=== PATIENT | female | born 1990 | race African-American/Black ===

== ENCOUNTER 2018-11-29 10:41 | Emergency (ER) | payer MEDICAID, OTHER ==
[~2018-11-29] VITALS: Ht 160 cm; Wt 74.4 kg
[2018-11-29 10:54] VITALS: BP 131/74
--- NOTE | 2018-11-29 10:56 | NUR ---
PT AMBULATED TO BED 01
--- NOTE | 2018-11-29 11:03 | NUR ---
28F BIB SISTER W/ C/O BACK PAIN WITH URINATION SINCE LAST NIGHT. DENIES DYSURIA. STATES BURNING B/L BACK/CVA PAIN AT REST THAT INCREASES WITH URINATION. STATES FELT WARM, COLD SWEATS, CHILLS YESTERDAY- DID NOT CHECK TEMP AT HOME. FELT NAUSEOUS YESTERDAY WITH DECREASED APPETITE. NO NAUSEA TODAY. NO VOMITING. DID NOT TX AT HOME HX- NONE
--- NOTE | 2018-11-29 11:04 | NUR ---
DR. CRABTREE AT BEDSIDE
[2018-11-29] MEDS ORDERED: KETOROLAC 30 MG/ML VIAL IVP ONE (11:40)
[2018-11-29] MEDS ORDERED: NACL 0.9% 1,000 ML IV ONE (11:40)
--- NOTE | 2018-11-29 12:10 | NUR ---
BLOOD DRAWN BY MYSELF AND TUBES HANDED TO HOSPITAL SCIENTIST RAISSA.
[2018-11-29 12:19] LABS: BASOPHILS # (AUTO) 0.1 K/uL (0.00-0.22); BASOPHILS % (AUTO) 0.5 % (0.0-2.0); EOSINOPHILS # (AUTO) 0.2 K/uL (0-0.4); EOSINOPHILS % (AUTO) 1.8 % (0.0-4.0); HEMATOCRIT 41.7 % (36-48); HEMOGLOBIN 14.2 g/dL (12.0-16.0); LYMPHOCYTES # (AUTO) 1.6 K/uL (2.5-16.5); LYMPHOCYTES % (AUTO) 13.6 % (20.5-51.1); MEAN CORPUSCULAR HEMOGLOBIN 32 pg (27-31); MEAN CORPUSCULAR HGB CONC 34 g/dL (33-37); MEAN CORPUSCULAR VOLUME 93.4 fL (80-94); MONOCYTES # (AUTO) 0.9 K/uL (0.8-1.0); MONOCYTES % (AUTO) 8.1 % (1.7-9.3); NEUTROPHILS # (AUTO) 8.6 K/uL (1.8-7.7); PLATELET COUNT (AUTO) 262 K/uL (140-450); RED BLOOD CELL COUNT(AUTO) 4.47 MIL/uL (4.20-5.40); RED CELL DISTRIBUTION WIDTH 13.7 % (11.6-13.7); WHITE BLOOD COUNT (AUTO) 11.4 K/uL (4.8-10.8)
[2018-11-29] MEDS ORDERED: cefTRIAXone 1,000 MG VIAL ONE (12:19)
[2018-11-29 12:36] LABS: ANION GAP 13.5 (8-16); CARBON DIOXIDE 25.7 mmol/L (21-32); CREATININE 1.1 mg/dL (0.6-1.3); POTASSIUM 4.2 mmol/L (3.5-5.1)
[2018-11-29 12:41] LABS: ALBUMIN 3.6 g/dL (3.4-5.0)
[2018-11-29 12:46] LABS: APPEARANCE,URINE HAZY (CLEAR); BILIRUBIN,URINE NEGATIVE (NEGATIVE); BLOOD, URINE 3+ (NEGATIVE); COLOR,URINE YELLOW (YELLOW); LEUKOCYTE ESTERASE ,URINE 3+ (NEGATIVE); NITRITE, URINE POSITIVE (NEGATIVE); PH,URINE 6.5 (5.0-9.0); UGLUCOSE NEGATIVE (NEGATIVE)
--- NOTE | 2018-11-29 13:24 | NUR ---
DR. ADORNO SPEAKING WITH PATIENT AT BEDSIDE.
[2018-11-29 13:36] LABS: RBC,URINE 11-20 (MOD) /HPF (0-5); WBC,URINE 20-60 /HPF (0-5)
[2018-11-29 13:42] VITALS: BP 118/64
== END 2018-11-29 13:42 | disposition home or self-care (01) ==
LOC: MED 10:41
DX: N12 Tubulo-interstitial nephritis, not specified as acute or chronic (principal); R50.9 Fever, unspecified; Z87.448 Personal history of other diseases of urinary system
CPT/HCPCS: 36415; 80053; 81001; 81025; 84703; 85025; 87086; 96365; 96375; 99283; J0696; J1885; J7030; J7060; 87186

== ENCOUNTER 2020-01-09 05:25 | Emergency (ER) | payer OTHER ==
[~2020-01-09] VITALS: Ht 154.9 cm; Wt 87.1 kg
[2020-01-09 05:35] VITALS: BP 153/101
--- NOTE | 2020-01-09 05:38 | NUR ---
To ED bed 12
--- NOTE | 2020-01-09 05:40 | NUR ---
29 YO F BIB SELF FOR C/C OF 6/10 R UPPER/MID BACK PAIN X3 WEEKS THAT BEGAN WORSENING AT 0400. PT HAS BEEN PRESCRIBED BACLOFEN FOR THIS WITHOUT RELIEF OF SYMTOMS. PT STATES SHE IS ALSO FEELING ANXIOUS, REPORT DOING 0.5 GRAMS OF COCAINE AND ALCOHOL YESTERDAY. PT PRESENTS WITH VSS. BED LOCKED AND IN LOWEST POSITION. SIDE RAILS X1. MED HX: DENIES RX: BACLOFEN ALLERGIES: NSAIDS
--- NOTE | 2020-01-09 06:01 | NUR ---
SHELTON GARCIA AT BEDSIDE
[2020-01-09] MEDS: LORazepam 1 MG TAB PO ONE (06:14)
[2020-01-09 06:40] VITALS: BP 153/101
--- NOTE | 2020-01-09 06:40 | NUR ---
PATIENT ELOPED FROM FACILITY. DISCHARGE INSTRUCTIONS NOT GIVEN TO PATIENT. DR. Pena NOTIFIED.
== END 2020-01-09 06:40 | disposition left against medical advice (07) ==
LOC: MED 05:25
DX: F41.9 Anxiety disorder, unspecified (principal); Z88.6 Allergy status to analgesic agent
CPT/HCPCS: 99283

== ENCOUNTER 2020-01-09 07:15 | Emergency (ER) | payer OTHER ==
[~2020-01-09] VITALS: Ht 160 cm; Wt 79.8 kg
[2020-01-09 07:25] VITALS: BP 145/78
--- NOTE | 2020-01-09 07:39 | NUR ---
PATIENT PRESENTS TO ED WITH CHEST TIGHTNESS AND ANXIETY S/P DOING A GRAM OF COKE AND ALCOHOL ON TUESDAY.. . PT STATES SHE WOKE UP FEELING VERY ANXIOUS AND IS ALSO COMPLAINING OF UPPER BACK PAIN . DENIES N/V/D; SKIN IS PINK/WARM/DRY; AAOX4 WITH EVEN AND STEADY GAIT; LUNGS CLEAR BL; HR EVEN AND REGULAR; PT DENIES ANY FEVER, CP, SOB, OR COUGH AT THIS TIME; PATIENT STATES PAIN OF 5/10 AT THIS TIME; VSS; PATIENT POSITIONED FOR COMFORT; HOB ELEVATED; BEDRAILS UP X2; BED DOWN. EDY PAREKH MADE AWARE OF PT STATUS. Addendum: 01/09/20 at 0743 by [email or web address] PATIENT PRESENTS TO ED WITH CHEST TIGHTNESS AND ANXIETY S/P DOING A GRAM OF COKE AND ALCOHOL ON TUESDAY.. . PT STATES SHE WOKE UP FEELING VERY ANXIOUS AND IS ALSO COMPLAINING OF UPPER BACK PAIN . DENIES N/V/D; SKIN IS PINK/WARM/DRY; AAOX4 WITH EVEN AND STEADY GAIT; LUNGS CLEAR BL; HR EVEN AND REGULAR; PT DENIES ANY FEVER, SOB, OR COUGH AT THIS TIME; PATIENT STATES PAIN OF 5/10 AT THIS TIME; VSS; PATIENT POSITIONED FOR COMFORT; HOB ELEVATED; BEDRAILS UP X2; BED DOWN. EDY PAREKH MADE AWARE OF PT STATUS.
[2020-01-09] MEDS ORDERED: LORazepam 2 MG/ML VIAL IM ONE (08:30)
--- NOTE | 2020-01-09 09:05 | NUR ---
X-Ray at bedside.
[2020-01-09 09:06] LABS: BASOPHILS # (AUTO) 0.1 K/uL (0.00-0.22); BASOPHILS % (AUTO) 0.5 % (0.0-2.0); EOSINOPHILS # (AUTO) 0.1 K/uL (0-0.4); EOSINOPHILS % (AUTO) 0.4 % (0.0-4.0); HEMATOCRIT 41.7 % (36-48); HEMOGLOBIN 14.1 g/dL (12.0-16.0); LYMPHOCYTES # (AUTO) 1.9 K/uL (2.5-16.5); LYMPHOCYTES % (AUTO) 15.3 % (20.5-51.1); MEAN CORPUSCULAR HEMOGLOBIN 32 pg (27-31); MEAN CORPUSCULAR HGB CONC 34 g/dL (33-37); MEAN CORPUSCULAR VOLUME 93.9 fL (80-94); MONOCYTES # (AUTO) 0.6 K/uL (0.8-1.0); MONOCYTES % (AUTO) 4.9 % (1.7-9.3); NEUTROPHILS % (AUTO) 78.9 % (42.2-75.2); PLATELET COUNT (AUTO) 318 K/uL (140-450); RED BLOOD CELL COUNT(AUTO) 4.44 MIL/uL (4.20-5.40); RED CELL DISTRIBUTION WIDTH 13.9 % (11.6-13.7); WHITE BLOOD COUNT (AUTO) 12.7 K/uL (4.8-10.8)
[2020-01-09 09:20] LABS: ALBUMIN 3.6 g/dL (3.4-5.0); ANION GAP 12.1 (8-16); CARBON DIOXIDE 25.9 mmol/L (21-32); TOTAL BILIRUBIN 0.6 mg/dL (0.0-1.0)
--- NOTE | 2020-01-09 09:31 | NUR ---
PATIENT STATES SHE IS FEELING BETTER WITH DECREASED ANXIETY. VSS. PT RESTING IN BED
[2020-01-09 09:53] VITALS: BP 145/78
--- NOTE | 2020-01-09 09:54 | NUR ---
Patient discharged with v/s stable. Written and verbal after care instructions given and explained. Patient alert, oriented and verbalized understanding of instructions. Ambulatory with steady gait. All questions addressed prior to discharge. ID band removed. Patient advised to follow up with PMD. Rx of XANAX 0.5MG given. Patient educated on indication of medication including possible reaction and side effects. Opportunity to ask questions provided and answered.
[2020-01-09 11:05] LABS: BENZODIAZEPINE, URINE POSITIVE ng/mL (NEG <=200); COCAINE, URINE POSITIVE ng/mL (NEG <=300)
[2020-01-09 11:06] LABS: BARBITURATE, URINE NEGATIVE ng/ml (NEG <=200); CANNABINOID, URINE NEGATIVE ng/mL (NEG <=50); OPIATE, URINE NEGATIVE ng/mL (NEG <=2000); PHENCYCLIDINE SCREEN,URINE NEGATIVE ng/mL (NEG <=25)
== END 2020-01-09 09:54 | disposition home or self-care (01) ==
LOC: MED 07:15
DX: F41.9 Anxiety disorder, unspecified (principal); R07.9 Chest pain, unspecified; F14.90 Cocaine use, unspecified, uncomplicated; R03.0 Elevated blood-pressure reading, without diagnosis of hypertension; Z88.6 Allergy status to analgesic agent; Z98.890 Other specified postprocedural states
CPT/HCPCS: 36415; 71045; 80053; 80305; 84484; 85025; 93005; 96372; 99285; J2060; Q0092

== ENCOUNTER 2022-07-13 11:20 | Emergency (ER) | payer OTHER ==
[~2022-07-13] VITALS: Ht 154.9 cm; Wt 80.7 kg
[2022-07-13 11:28] VITALS: BP 138/91
--- NOTE | 2022-07-13 11:33 | NUR ---
PT REFUSING EKG STATES THAT SHE WANTS TO BE WITH HER MOM AND WANTS TO LEAVE
--- NOTE | 2022-07-13 11:36 | NUR ---
RETURN TO TRIAGE FOR EKG, PT STATES THAT SHE'S OK NOW TO PERFORM EKG
--- NOTE | 2022-07-13 11:42 | NUR ---
ATTEMPTED ANOTHER EKG, PT CRYING UNABLE TO CALM DOWN STATING THAT SHE WANTS TO BE WITH HER MOTHER, PT AMBULATED TO LOBBY WITH FRIEND Addendum: 07/13/22 at 1145 by [email or web address] MOM NOT FRIEND
--- NOTE | 2022-07-13 11:42 | NUR ---
1138 EKG ATTEMPTED BUT PT WAS TOO DISTRESSED. UNABLE TO COMPLETE
--- NOTE | 2022-07-13 13:27 | NUR ---
ATTEMPTED TO BRING PATIENT TO BED. PT REFUSED TO COME INSIDE, STATING SHE DOES NOT WANT TO COME INSIDE. PT IS CRYING AND SCREAMING IN THE LOBBY. MOM AT LOBBY WITH PATIENT. PROVIDED WHEELCHAIR FOR ASSISTANCE TO BED BUT PATIENT REFUSED TO SIT IN WHEELCHAIR. PT CONTINUES TO SCREAM IN THE LOBBY AT OTHER PATIENTS. CALLED SECURITY FOR ASSISTANCE. PT UNABLE TO BE CONSOLED AT THIS TIME.
--- NOTE | 2022-07-13 13:28 | NUR ---
DR PRESTON AWARE OF PATIENT STATUS
--- NOTE | 2022-07-13 13:33 | NUR ---
PT ESCORTED OUTSIDE ER, WAITING FOR MD GRANT, PT STATES "I PROBABLY NEED THE AIR", PT WITH MOTHER IN THE OUTSIDE CHAIR.
--- NOTE | 2022-07-13 13:33 | NUR ---
PT SCREAMING THAT "SHE;S ONLY DOING THIS TO SPEAK TO MY DAD!" APPEARS AGITATED, DR PRESTON MADE AWARE. PT WALKING TO OUTSIDE OF THE LOBBY
[2022-07-13] MEDS ORDERED: LORazepam 1 MG TAB PO ONE ×2 (13:35→14:20)
--- NOTE | 2022-07-13 14:14 | NUR ---
AMBULATED TO ER BED 2 WITH MOTHER
[2022-07-13 15:14] LABS: BASOPHILS # (AUTO) 0.1 K/uL (0.00-0.22); BASOPHILS % (AUTO) 0.6 % (0.0-2.0); EOSINOPHILS # (AUTO) 0.1 K/uL (0-0.4); EOSINOPHILS % (AUTO) 0.5 % (0.0-4.0); HEMATOCRIT 32.6 % (36-48); HEMOGLOBIN 10.2 g/dL (12.0-16.0); LYMPHOCYTES # (AUTO) 1.5 K/uL (2.5-16.5); LYMPHOCYTES % (AUTO) 12.5 % (20.5-51.1); MEAN CORPUSCULAR HEMOGLOBIN 23 pg (27-31); MEAN CORPUSCULAR HGB CONC 31 g/dL (33-37); MONOCYTES # (AUTO) 0.6 K/uL (0.8-1.0); MONOCYTES % (AUTO) 5.2 % (1.7-9.3); NEUTROPHILS # (AUTO) 9.7 K/uL (1.8-7.7); NEUTROPHILS % (AUTO) 81.2 % (42.2-75.2); PLATELET COUNT (AUTO) 341 K/uL (140-450); RED BLOOD CELL COUNT(AUTO) 4.35 MIL/uL (4.20-5.40); RED CELL DISTRIBUTION WIDTH 17.5 % (11.6-13.7)
--- NOTE | 2022-07-13 15:30 | NUR ---
RESTING IN BED, CALM, QUESTIONS AND CONCERNS ANSWERED
[2022-07-13 15:36] LABS: ALBUMIN 3.8 g/dL (3.4-5.0); ANION GAP 15.5 (8-16); ASPARTATE AMINOTRANSFERASE 21 U/L (15-37); CARBON DIOXIDE 24.8 mmol/L (21-32); CHLORIDE 104 mmol/L (98-107); CREATININE 1.2 mg/dL (0.6-1.3); GFR ARICAN-AMERICAN 67 mL/min (>90); GLUCOSE 102 mg/dL (74-106); POTASSIUM 4.3 mmol/L (3.5-5.1); SODIUM SERUM 140 mmol/L (136-145); TOTAL BILIRUBIN 0.5 mg/dL (0.0-1.0); UREA NITROGEN, BLOOD 13 mg/dL (7-18)
[2022-07-13] MEDS ORDERED: ATA10 PO (15:43)
[2022-07-13 16:36] VITALS: BP 138/91
== END 2022-07-13 16:36 | disposition home or self-care (01) ==
LOC: MED 11:20
DX: R07.9 Chest pain, unspecified (principal); F41.0 Panic disorder [episodic paroxysmal anxiety]; Z79.899 Other long term (current) drug therapy
CPT/HCPCS: 36415; 71045; 80053; 84484; 85025; 93005; 99285